=== PATIENT | male | born 1960 | race Caucasian/White ===

== ENCOUNTER 2016-10-14 07:33 | Emergency (ER) | payer OTHER ==
[~2016-10-14] VITALS: Ht 185.4 cm; Wt 87.5 kg
--- NOTE | 2016-10-14 07:50 | NUR ---
PT REC;D TO ER C/O CHEST PAIN OVER 1 MONTH PT WAS TOLD HAD BLOOD CLOTS AND WAS ON COUMDAIN AND PT STOPPED MED ON HIS OWN 1 MONTH AGO . 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 IV STARRTED RTAC 20G IV HEPLOCKED EKG DONE SR . PAIN 8/10 LEFT LOWER CHEST .
[2016-10-14] MEDS ORDERED: ONDANSETRON HCL/PF 4 MG/2 ML VIAL ONE (07:52)
[2016-10-14] MEDS ORDERED: ASPIRIN 325 MG TABLET ONE (07:52)
[2016-10-14] MEDS ORDERED: MORPHINE SULFATE INJ 4 MG/ML DISP.SYRIN ONE (07:52)
[2016-10-14] MEDS ORDERED: MORPHINE SULFATE INJ 2 MG/ML DISP.SYRIN IV ONE (08:00)
[2016-10-14] MEDS ORDERED: ASPIRIN 325 MG TABLET PO ONE (08:00)
[2016-10-14] MEDS ORDERED: ONDANSETRON HCL/PF 4 MG/2 ML VIAL IVP ONE (08:00)
--- NOTE | 2016-10-14 08:06 | NUR ---
MED GIVEN PER MD ORDER ASA HELD PT TOOK AT HOME AWAITING EVALUATION BY ER PROVIDER.
[2016-10-14 08:14] LABS: CALCIUM, SERUM 8.7 mg/dL (8.5-10.1); CARBON DIOXIDE 32 mmol/L (21-32); CHLORIDE 104 mmol/L (98-107); CREATININE 0.7 mg/dL (0.6-1.3); GLUCOSE 95 mg/dL (74-106); POTASSIUM 4.1 mmol/L (3.5-5.1); SODIUM SERUM 140 mmol/L (136-145); UREA NITROGEN, BLOOD 11 mg/dL (7-18)
--- NOTE | 2016-10-14 08:18 | NUR ---
PT STATED PAIN IS 5/10
[2016-10-14 08:23] LABS: TROPONIN I < 0.017 ng/mL (0.00-0.056)
[2016-10-14] MEDS ORDERED: IV NS 0.9% 250 ML IV ONE (08:25)
[2016-10-14] MEDS ORDERED: IOHEXOL-350 100 ML VIAL IV ONE (08:25)
[2016-10-14] MEDS ORDERED: CT SWABBABLE VALVE TRANS SET 1 EA INFUS.SET MC ONE (08:25)
--- NOTE | 2016-10-14 08:28 | NUR ---
PATIENT TRANSPORTED FOR CT VIA GURNEY.
--- NOTE | 2016-10-14 08:29 | NUR ---
STATED FEELING BETTER SENT TO CT
[2016-10-14 08:33] LABS: BASOPHILS % (AUTO) 0.4 % (0.0-2.0); EOSINOPHILS # (AUTO) 0.4 /CMM (0.0-0.7); EOSINOPHILS % (AUTO) 4.6 % (0.0-6.0); HEMATOCRIT 45 % (39-51); LYMPHOCYTES # (AUTO) 2.3 /CMM (0.8-4.8); LYMPHOCYTES % (AUTO) 29.3 % (20.0-44.0); MEAN CORPUSCULAR HEMOGLOBIN 31 PG (26.0-33.0); MEAN CORPUSCULAR HGB CONC 34 g/dl (31.0-36.0); MEAN CORPUSCULAR VOLUME 92 fL (80-96); MONOCYTES # (AUTO) 0.5 /CMM (0.1-1.30); MONOCYTES % (AUTO) 5.8 % (2.0-12.0); NEUTROPHILS # (AUTO) 4.7 /CMM (1.8-8.9); NEUTROPHILS % (AUTO) 59.9 % (43.0-81.0); PLATELET COUNT (AUTO) 237 /CMM (150-450); RDW COEFFICIENT OF VARIATION 13.7 (11.5-15.0); RED BLOOD CELL COUNT(AUTO) 4.87 MIL/uL (4.5-6.0); WHITE BLOOD COUNT (AUTO) 7.8 K/uL (4.3-11.0)
[2016-10-14 08:34] LABS: PROTHROMBIN TIME 10.7 SECS (9.5-12.7)
--- NOTE | 2016-10-14 08:46 | NUR ---
PATIENT CAME BACK FROM CT.
[2016-10-14 09:18] LABS: D-DIMER 0.77 mg/L(FEU (0.17-0.50)
--- NOTE | 2016-10-14 09:42 | NUR ---
PT. VERBALIZED UNDERSTANDING OF AFTERCARE INSTRUCTIONS.IV removed. Catheter intact and site benign. Pressure and 4x4 applied to site. No bleeding noted.Patient discharged to home in stable condition. Written and verbal after care instructions given. Patient verbalizes understanding of instruction.
[2016-10-14 09:43] VITALS: BP 127/73
== END 2016-10-14 08:15 | disposition home or self-care (01) ==
LOC: ER 07:36
DX: R07.1 Chest pain on breathing (principal); R79.1 Abnormal coagulation profile; F17.200 Nicotine dependence, unspecified, uncomplicated; Z79.82 Long term (current) use of aspirin; Z86.718 Personal history of other venous thrombosis and embolism
CPT/HCPCS: 36415; 71010; 71275; 80048; 84484; 85025; 85378; 85730; 93005; 96374; 96375; 99285; A4606; J2270; J2405; J7050; Q9967; Z7610